=== PATIENT | male | born 1940 | race Asian ===

== ENCOUNTER → 2024-06-21 13:37 | Outpatient (CLI) | payer OTHER, SELFPAY ==
--- NOTE | 2024-06-21 13:40 | DI.ECHO.S_ITS ---
[facility]+ [facility] : : [address] : : [place] : : [id number] : : Phone: [phone] Echocardiogram Report + + :Name: RADHA CARDOZA Study Date: 06/21/2024 Height: 66 in : :Hospital ReadingLocation: Weight: 140 lb : : Gender: Male BSA: 1.7 m2 : :: 1940 Age: 84 yrs BP: 122/74 mmHg: :Reason For Study: ISCHEMIC HEART DISEASE : :Ordering Physician: MICHAEL, : :RAMANDEEP Performed By: Moris Angelo : :Referring: RAMANDEEP RODRIGUEZ : + + Interpretation Summary The left ventricle is normal in size. The left ventricular ejection fraction is normal. The ejection fraction is estimated to be 65-70%. The right ventricle is normal in size and function. The aortic valve is trileaflet. There is mild to moderate aortic regurgitation. There is mild tricuspid regurgitation. Right ventricular systolic pressure is estimated to be 23 mmHg plus the clinically estimated CVP which cannot be estimated on this exam. Procedure: A two-dimensional transthoracic echocardiogram with color flow and Doppler was performed. The study quality was technically good. There is no prior echocardiogram noted for this patient. The patient was in normal sinus rhythm during the exam. Left Ventricle: The left ventricle is normal in size. Left ventricular wall thickness is mildly increased. Proximal septal thickening is noted. There is no ventricular septal defect visualized. The ejection fraction is estimated to be 65-70%. The left ventricular ejection fraction is normal. There are no focal wall motion abnormalities. Diastolic parameters suggest a relaxation abnormality of the left ventricle, consistent with probable normal filling pressures. Right Ventricle: The right ventricle is normal in size and function. Atria: The left atrial size is normal. Right atrial size is normal. There is no Doppler evidence for an interatrial shunt. Mitral Valve: The mitral valve leaflets appear normal. There is no evidence of stenosis, fluttering, or prolapse. There is systolic anterior motion of the chordal apparatus. There is trace mitral regurgitation. Aortic Valve: The aortic valve is trileaflet. The aortic valve opens well. The aortic valve is slightly calcified. There is no aortic valve stenosis. There is mild to moderate aortic regurgitation. Tricuspid Valve: The tricuspid valve leaflets are thin and pliable. There is mild tricuspid regurgitation. Right ventricular systolic pressure is estimated to be 23 mmHg plus the clinically estimated CVP which cannot be estimated on this exam. Pulmonic Valve: The pulmonic valve is not well seen, but is grossly normal. There is trace pulmonic regurgitation. Great Vessels: The aortic root is normal size. The dimensions of the ascending aorta are normal. The pulmonary artery is normal size. The inferior vena cava was not visualized. Pericardium/ Pleura There is no pericardial effusion. MMode/2D Measurements & Calculations LVIDd: 4.3 cm LVOT diam: 2.0 cm LVIDs: 2.7 cm Ao root diam: 3.8 cm FS: 36.9 % asc Aorta Diam: 3.6 cm EPSS: 1.2 cm IVSd: 1.1 cm LVPWd: 1.1 cm LV verduzco. diameter/BSA (cm/m^2): 2.5 LV sys. diameter/BSA (cm/m^2): 1.6 LA A2 area: 12.5 cm2 RA long axis: 4.3 cm LA A4 area: 10.4 cm2 RA area: 10.2 cm2 LA length (vol): 4.7 cm RA vol: 20.5 ml LA vol: 23.4 ml RA : 12.0 ml/m2 LA vol index: 13.6 ml/m2 RVD1 (basal): 3.5 cm RVD2 (mid): 2.8 cm TAPSE: 2.3 cm Doppler Measurements & Calculations Ao V2 max: 145.1 cm/sec LVOT Max Bryn: 96.5 cm/sec Ao V2 mean: 98.0 cm/sec LV V1 max P.7 mmHg Ao max P.4 mmHg LV V1 VTI: 17.5 cm Ao mean P.4 mmHg SHAILESH(I,D): 2.4 cm2 Ao V2 VTI: 22.0 cm SHAILESH(V,D): 2.0 cm2 sev ratio: 0.79 SHAILESH indexed to BSA (cm^2/m^2): 1.4 MV E max bryn: 47.6 cm/sec TR max bryn: 240.6 cm/sec MV A max bryn: 83.8 cm/sec TR max P.1 mmHg MV E/A: 0.57 PA V2 max: 80.4 cm/sec Med Peak E' Bryn: 4.5 cm/sec PA V2 mean: 56.4 cm/sec E/E' med: 10.7 PA mean P.4 mmHg Lat Peak E' Bryn: 6.1 cm/sec PA pr(Accel): 51.6 mmHg E/E' lat: 7.8 E/e' average: 9.2 MV dec time: 0.16 sec SV(LVOT): 53.0 ml Reading Physician:04:00 PM
== END ==
LOC: ECHO 13:39
PROVIDERS: Referring Provider Chiropractor; Visit Provider Chiropractor
DX: I08.2 Rheumatic disorders of both aortic and tricuspid valves (principal); I25.9 Chronic ischemic heart disease, unspecified
CPT/HCPCS: 93306